=== PATIENT | female | born 1960 | race Caucasian/White ===

== ENCOUNTER 2019-05-28 15:09 | Emergency (ER) | payer OTHER ==
--- NOTE | 2019-05-28 16:41 | ERPHSYRPT ---
- History of Present Illness Time Seen by Provider: 05/28/19 15:15 Source: patient Exam Limitations: no limitations Patient Subjective Stated Complaint: pt here for a picc line that will not flush , she is getting 2 antibiotics for infection in muscles and bone. Triage Nursing Assessment: pt alert,walked in, resp easy, skin w/d/p. moves all ext but is weak, has picc line to right arm, no redness or swelling at site Physician History: Patient is here with clogged PICC line. Patient states she has a PICC line for infection. She states today her home infusion did not work. Therefore, sent into the ER for evaluation. Otherwise, she is asymptomatic without complaints. Timing/Duration: today Severity: mild Modifying Factors: Worsens With: eating Associated Symptoms: denies symptoms Home Medications: Letrozole 1 ea DAILY 05/28/19 [History] Metronidazole 500 mg BID 05/28/19 [History] Omeprazole Magnesium [Prilosec Otc] 1 ea DAILY 05/28/19 [History] Vancomycin/0.9 % Sod Chloride [Vancomycin 1 G/200Ml-0.9% NaCl] 1 ea DAILY [History] Hx Influenza Vaccination/Date Given: Yes Hx Pneumococcal Vaccination/Date Given: No - Review of Systems Constitutional: No Fever, No Chills Eyes: No Symptoms Ears, Nose, & Throat: No Symptoms Respiratory: No Cough, No Dyspnea Cardiac: No Chest Pain, No Edema, No Syncope Abdominal/Gastrointestinal: No Abdominal Pain, No Nausea, No Vomiting, No Diarrhea Genitourinary Symptoms: No Dysuria Musculoskeletal: No Back Pain, No Neck Pain Skin: No Rash Neurological: No Dizziness, No Focal Weakness, No Sensory Changes Psychological: No Symptoms Endocrine: No Symptoms All Other Systems: Reviewed and Negative - Past Medical History Pertinent Past Medical History: Yes Cardiac History: Hypertension Endocrine Medical History: Hypothyroidism Other Medical History: infection in muscle/bone 06/06 - Past Surgical History Past Surgical History: Yes Other Surgical History: back surgery - Social History Smoking Status: Current every day smoker Exposure to second hand smoke: Yes Drug Use: none Patient Lives Alone: No - Female History Hx Last Menstrual Period: post - Nursing Vital Signs Nursing Vital Signs: Initial Vital Signs Temperature 97.5 F 05/28/19 16:07 Pulse Rate 74 05/28/19 16:07 Respiratory Rate 18 05/28/19 16:07 Blood Pressure 185/85 05/28/19 16:07 O2 Sat by Pulse Oximetry 97 05/28/19 16:07 Pain Scale Pain Intensity 0 - Physical Exam General Appearance: no apparent distress, alert Eye Exam: PERRL/EOMI, eyes nml inspection Ears, Nose, Throat Exam: normal ENT inspection, TMs normal, pharynx normal, moist mucous membranes Neck Exam: normal inspection, non-tender, supple, full range of motion Respiratory Exam: normal breath sounds, lungs clear, No respiratory distress Cardiovascular Exam: regular rate/rhythm, normal heart sounds, normal peripheral pulses Gastrointestinal/Abdomen Exam: soft, normal bowel sounds, No tenderness, No mass Back Exam: normal inspection, normal range of motion, No CVA tenderness, No vertebral tenderness Extremity Exam: normal inspection, normal range of motion, pelvis stable Neurologic Exam: alert, oriented x 3, cooperative, normal mood/affect, nml cerebellar function, nml station & gait, sensation nml, No motor deficits Skin Exam: normal color, warm, dry, No rash Lymphatic Exam: No adenopathy SpO2: 97 Comments: 05/28/19 16:[address] without obvious issue on physical exam Ordered Tests: Active Orders 24 hr Category Date Time Status CHEST 2 VIEWS (PA AND LAT) Stat Exams 05/28/19 16:42 Completed Medication Summary Discontinued Medications Generic Name Dose Route Start Last Admin Trade Name Susana PRN Reason Stop Dose Admin Alteplase, Recombinant 2 mg 05/28/19 16:45 05/28/19 16:57 Cathflo Activase 2 Mg IV 05/28/19 16:46 2 mg STAT ONE Administration Alteplase, Recombinant 2 mg 05/28/19 18:22 05/28/19 18:23 Cathflo Activase 2 Mg IV 05/28/19 18:23 2 mg ONCE ONE Administration Heparin Sodium (Beef Lung) Confirm 05/28/19 17:40 Heparin Lock Flush 100 Units/Ml 5ml Syringe Administered 05/28/19 17:41 Dose 500 units .ROUTE .STK-MED ONE Heparin Sodium (Beef Lung) Confirm 05/28/19 17:42 Heparin Lock Flush 100 Units/Ml 5ml Syringe Administered 05/28/19 17:43 Dose 500 units .ROUTE .STK-MED ONE - Progress Progress: improved Progress Note: 05/28/19 16:40 We will obtain CXR to check for placement. We will give cathflo/activase. 05/28/19 19:46 PICC line did eventually flush with cathflo. Patient will be able to continue home infusion. She should call her doctor managing this for further recommendations tomorrow AM. Return here if anything changes. - Departure Departure Disposition: Home Clinical Impression: Occluded PICC line Condition: Stable Critical Care Time: No Referrals: MARIA C VALLADARES MD [Primary Care Provider] -
[2019-05-28] MEDS ORDERED: Cathflo Activase 2 MG IV ONE ×2 (16:45→18:22)
--- NOTE | 2019-05-28 19:40 | XRAY ---
Indication: Nonfunctioning PICC line. Comparison: None PA/lateral chest demonstrates right arm PICC line tip projecting over the subclavian caval junction. Lungs hyperinflated and clear with incidental calcified granulomas. Heart is not enlarged. Bony thorax intact with mild degenerative changes. Impression: Nonacute hyperinflated chest with chronic features.
[2019-05-28 19:47] VITALS: O2SAT 97
[2019-05-28 20:02] VITALS: BP 131/81; PULSE 92
== END 2019-05-28 20:02 | disposition home or self-care (01) ==
LOC: ED 15:09
DX: T82.898A Other specified complication of vascular prosthetic devices, implants and grafts, initial encounter (principal); Z45.2 Encounter for adjustment and management of vascular access device
CPT/HCPCS: 71046; 96374; 96376; 99284; J1642; J2997

== ENCOUNTER → 2019-06-02 | Emergency (ER) | payer OTHER | LOC: CANPREER → ED 22:22 | DX: Z53.9 Procedure and treatment not carried out, unspecified reason (principal) | CPT/HCPCS: J1642 ==